=== PATIENT | male | born 1990 | race Caucasian/White ===

== ENCOUNTER 2016-10-12 23:05 | Emergency (ER) | payer OTHER ==
[2016-10-12 23:16] VITALS: BP 127/68; PULSE 90; RESP 18; TEMP 97
[2016-10-12] MEDS ORDERED: PROPARACAINE 0.5% OPHTH DROPS 15 ML BTL LEFT EYE STA (23:21)
--- NOTE | 2016-10-12 23:25 | ED ---
Allergic Reaction HPI - General Chief complaint: Allergic Reaction Stated complaint: allergic reaction Time Seen by Provider: 10/12/16 23:20 Source: patient, family, RN/MD, EMS, RN notes reviewed Mode of arrival: ambulatory Limitations: no limitations - History of Present Illness Initial Comments: This is a 26-year-old male who presents emergency department stating that he was hiking through some words in tall grass when he felt like he got something in his left eye. He states he has a burning and stinging sensation to the eye. He states he has some redness and irritation around the eye. He denies any problems with visual acuity. Patient does have a little rash on his right forearm. Patient took Benadryl prior to arrival. Patient denies any shortness breath or chest pain. No problems with airway. No throat problems. No problems with the right eye. No ear problems. No difficulty swallowing. Tetanus status is up-to-date. Patient denies any chest pain or abdominal pain. No nausea or vomiting. MD Complaint: allergic reaction - Related Data Home Medications Medication Instructions Recorded Confirmed No Known Home Medications [No 10/12/16 10/12/16 Known Home Medications] Allergies Allergy/AdvReac Type Severity Reaction Status Date / Time Penicillins Allergy Rash/Hives Verified 10/12/16 23:31 Review of Systems ROS Statement: Those systems with pertinent positive or pertinent negative responses have been documented in the HPI. ROS Other: All systems not noted in ROS Statement are negative. Past Medical History Past Medical History: No Reported History History of Any Multi-Drug Resistant Organisms: None Reported Past Surgical History: Hernia Repair Additional Past Surgical History / Comment(s): fistula removed Past Psychological History: No Psychological Hx Reported Smoking Status: Current every day smoker Past Alcohol Use History: Occasional Past Drug Use History: None Reported General Exam - General Exam Comments Initial Comments: Well-developed, well-nourished 26-year-old male in minimal distress Limitations: no limitations General appearance: alert, in no apparent distress Head exam: Present: atraumatic, normocephalic, normal inspection Eye exam: Present: PERRL, EOMI, conjunctival injection (Patient has mild conjunctival injection involving the left eye. There is no evidence of foreign body. No evidence of chemosis), other (Minimal redness and irritation to the skin of the upper and lower eyelid. No lesions or vesicles). Absent: normal appearance, scleral icterus, periorbital swelling Pupils: Present: other (Slit-lamp examination reveals no evidence of corneal abrasion. No evidence of infection. Lid was everted. No evidence of foreign body. No hypopyon or hyphema. No dye uptake. Proparacaine was used to numb the eye prior to slit lamp examination) ENT exam: Present: normal exam, mucous membranes moist Neck exam: Present: normal inspection. Absent: tenderness, meningismus, lymphadenopathy Respiratory exam: Present: normal lung sounds bilaterally. Absent: respiratory distress, wheezes, rales, rhonchi, stridor Cardiovascular Exam: Present: regular rate, normal rhythm, normal heart sounds. Absent: systolic murmur, diastolic murmur, rubs, gallop, clicks GI/Abdominal exam: Present: soft, normal bowel sounds. Absent: distended, tenderness, guarding, rebound, rigid Extremities exam: Present: normal inspection, full ROM, normal capillary refill. Absent: tenderness, pedal edema, joint swelling, calf tenderness Back exam: Present: normal inspection Neurological exam: Present: alert, oriented X3, CN II-XII intact Psychiatric exam: Present: normal affect, normal mood Skin exam: Present: warm, dry, intact, normal color, rash (Patient has a mild eruption on the right arm consistent with contact dermatitis. This is relegated to the forearm. There is no evidence of secondary infection.) Course Vital Signs 10/12/16 23:09 Temperature 97 F L Pulse Rate 90 Respiratory 18 Rate Blood Pressure 127/68 O2 Sat by Pulse 96 Oximetry Procedures - Procedures Initial comment: Proparacaine, one drop to left eye, slit-lamp examination, eye irrigation with 500 mL of normal saline. Patient tolerated well Medical Decision Making - Medical Decision Making Patient appears have mild irritation --likely from contact with plant matter as he does have evidence of contact dermatitis which is mild on the right forearm and a little bit of redness to the left eye. There is no evidence of foreign body. No diminished visual acuity. Patient will be sent home with antihistamines and told to use artificial tears. Return parameters discussed Disposition Clinical Impression: Conjunctivitis, allergic, Contact dermatitis due to plant Disposition: HOME SELF-CARE Condition: Good Instructions: Conjunctivitis (ED), Contact Dermatitis (ED) Additional Instructions: Use artificial tears every hour as needed for eye irritation. Continue over-the -counter Benadryl 25 mg every 6 hours for itching. Apply topical hydrocortisone to the rash on the right forearm.Return to the ER at once if the symptoms worsen or problems or difficulties arise. Referrals: Joseph Bourgeois MD [Primary Care Provider] - 1-2 days Time of Disposition: 23:41
== END 2016-10-13 00:39 | disposition home or self-care (01) ==
LOC: EC 23:05
DX: H10.12 Acute atopic conjunctivitis, left eye (principal); L23.7 Allergic contact dermatitis due to plants, except food; F17.200 Nicotine dependence, unspecified, uncomplicated; Z88.0 Allergy status to penicillin
CPT/HCPCS: 99283

== ENCOUNTER 2020-10-03 17:58 | Emergency (ER) | payer BC, OTHER ==
[2020-10-03 18:19] VITALS: BP 133/82; PULSE 65; RESP 18; TEMP 98.1
[2020-10-03] MEDS ORDERED: DIPH,PERTUS(ACELL)TETVAC-LF 0.5 ML VIAL IM ONE (19:51)
--- NOTE | 2020-10-03 20:28 | ED ---
Wound/Laceration HPI - General Chief Complaint: Wound/Laceration Stated Complaint: Head Injury Time Seen by Provider: 10/03/20 19:43 Source: patient Mode of arrival: ambulatory Limitations: no limitations - History of Present Illness Initial Comments: Patient is a 30-year-old male presenting to the emergency department with a laceration to his scalp. 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 This happened about 2 hours prior to arrival. He did not lose consciousness, he does have a very small headache where his laceration is. Bleeding is controlled with a bandage. He is unsure of his tetanus vaccine. He denies any dizziness, no lightheadedness, no nausea or vomiting. He denies any changes in his vision. He states his headache is a 2/10. He did not take any medication yet. He has no further complaints at this time. - Related Data Home Medications Medication Instructions Recorded Confirmed No Known Home Medications 10/12/16 10/12/16 Allergies Allergy/AdvReac Type Severity Reaction Status Date / Time Penicillins Allergy Rash/Hives Verified 10/12/16 23:31 Review of Systems ROS Statement: Those systems with pertinent positive or pertinent negative responses have been documented in the HPI. ROS Other: All systems not noted in ROS Statement are negative. Past Medical History Past Medical History: No Reported History History of Any Multi-Drug Resistant Organisms: None Reported Past Surgical History: Hernia Repair, Tonsillectomy Additional Past Surgical History / Comment(s): fistula removed Past Psychological History: No Psychological Hx Reported Smoking Status: Former smoker Past Alcohol Use History: Occasional Past Drug Use History: None Reported General Exam - General Exam Comments Initial Comments: GENERAL: Patient is well-developed and well-nourished. Patient is nontoxic and in no acute distress. HEAD: Atraumatic, normocephalic. Patient has small hematoma to the top of his scalp where her laceration is. No active bleeding. Very minimal pain surrounding the area. No signs of basal skull fracture. EYES: Pupils equal round and reactive to light, extraocular movements intact, sclera anicteric, conjunctiva are normal. Eyelids were unremarkable. ENT: TMs normal, nares patent, oropharynx clear without exudates. Moist mucous membranes. NECK: Normal range of motion, supple without lymphadenopathy or JVD. No midline tend erness. LUNGS: Unlabored respirations. Breath sounds clear to auscultation bilaterally and equal. No wheezes rales or rhonchi. HEART: Regular rate and rhythm without murmurs, rubs or gallops. ABDOMEN: Soft, nontender, normoactive bowel sounds. No guarding, no rebound. No masses appreciated. : Deferred MUSCULOSKELETAL: Normal extremities with adequate strength and normal range of motion, no pitting or edema. No clubbing or cyanosis. NEUROLOGICAL: Patient is alert and oriented x 3. Motor and sensory are also intact. Cranial nerves II through XII grossly intact. Symmetrical smile. Normal speech, normal gait. PSYCH: Normal mood, normal affect. SKIN: Warm, Dry, normal turgor, no rashes. Patient has a 3 cm laceration to the top of his scalp, there is a small hematoma underneath as well. No active bleeding. Limitations: no limitations Course Vital Signs 10/03/20 18:13 Temperature 98.1 F Pulse Rate 65 Respiratory 18 Rate Blood Pressure 133/82 O2 Sat by Pulse 98 Oximetry Procedures - Laceration Laceration #1 Consent Obtained: verbal consent Indication: laceration Site: scalp Size (cm): 3 Description: linear Depth: simple, single layer Patient Tolerated Procedure: well Additional Comments: 6 sofia were used to close patient's 3 cm wound. He tolerated procedure well. Medical Decision Making - Medical Decision Making Patient is a 30-year-old male here with a 3 cm laceration to the top of the scalp after a post-jewel hole cornerer fell back on the top of his head. No loss of consciousness, no other abnormal exam findings, no acute neuro deficits. His pain is minimal. This happened about 2 hours prior to arrival. Patient's wound was cleaned, closed with 6 sofia. He tolerated procedure well. We did update his tetanus vaccine today. We discussed wound care, sofia need to be removed in 7-10 days. He is stable for discharge and he is in agreement with this plan of care. Case discussed with Dr. Lipscomb. Disposition Clinical Impression: Laceration of scalp, Scalp hematoma Disposition: HOME SELF-CARE Condition: Stable Instructions (If sedation given, give patient instructions): Staple Care (ED) Additional Instructions: Please return to the Emergency Department if symptoms worsen or any other concerns. Keep area clean and dry. May take showers as normal. Pat area dry, careful not to snag the sofia. May take Tylenol or Motrin for any discomfort. [place] need to removed in 7-10 days. Is patient prescribed a controlled substance at d/c from ED?: No Referrals: Art Damico DO [Primary Care Provider] - 1-2 days Time of Disposition: 20:27
== END 2020-10-03 20:44 | disposition home or self-care (01) ==
LOC: EC 17:58
DX: S01.01XA Laceration without foreign body of scalp, initial encounter (principal); Z87.891 Personal history of nicotine dependence; Z88.0 Allergy status to penicillin; W20.8XXA Other cause of strike by thrown, projected or falling object, initial encounter
CPT/HCPCS: 12002; 90471; 90715; 99282

== ENCOUNTER 2023-01-01 06:54 | Day surgery (SDC) | payer OTHER ==
[2022-12-31 12:06] VITALS: BMI 21.5
[2023-01-01] MEDS ORDERED: LIDOCAINE 1% (10MG/ML) FOR IV START INTRADERMA PRN (07:11)
[2023-01-01] MEDS ORDERED: ONDANSETRON 4 MG/2 ML VIAL IVP PRN (07:11)
[2023-01-01] MEDS: LACTATED RINGERS 1,000 ML IV SCH ×2 (07:21→07:40)
[2023-01-01 07:38] VITALS: RESP 16; TEMP 97.1
[2023-01-01] MEDS ORDERED: PROPOFOL 10 MG/ML 20 ML VIAL IV ONE (07:42)
[2023-01-01] MEDS ORDERED: LIDOCAINE 2% INJ 20 MG/ML (2 ML VIAL) ONE (07:42)
--- NOTE | 2023-01-01 08:16 | P.PCN ---
Date of Procedure: 01/01/23 Procedure(s) Performed: Brief history: Patient is a pleasant 32-year-old white male scheduled for an elective upper endoscopy as well as colonoscopy as a part of evaluation of iron deficiency anemia and chronic diarrhea. Last hemoglobin was 11 g/dL and this and iron indices consistent with iron deficiency anemia. His been having 2 small lumens anywhere between 3-4 days for the last 10 years duration. Denies any rectal bleeding. Procedure performed: Esophagogastroduodenoscopy with biopsy Colonoscopy with biopsy Preoperative diagnosis: Iron deficiency anemia and chronic diarrhea of 10 years duration Anesthesia: MAC Procedure: After informed consent was obtained from the patient was brought into the endoscopy unit and IV sedation was administered by anesthesia under continuous monitoring. Initially upper endoscopy was done. The Olympus GF 160 video endoscope was inserted inserted into the mouth and esophagus intubated without any difficulty and was gradually advanced into the stomach and duodenum and carefully examined. The bulb and second part of the duodenum appeared normal. Biopsies were done from the duodenum to rule out celiac disease. The scope was then withdrawn into the stomach adequately insufflated with air and upon careful examination the antrum had mild gastritis and biopsies were done from this area. Mucosa of the body, cardia and fundus appeared normal. The scope was then withdrawn into the esophagus. The GE junction was located at 40 cm to the incisors. It appeared regular with no erythema erosions or ulcerations. Rest of the esophagus appeared normal. Patient tolerated the procedure well. At this time the patient continued to remain sedation. Initial digital rectal examination was normal. Olympus CF 160 video colonoscope was then inserted into the rectum and gradually advanced to the cecum without any difficulty. Careful examination was performed as the scope was gradually being withdrawn. The prep was excellent. The ileocecal valve was extremely deformed with multiple small polyps noted. The bulb was also significant a narrowed with multiple ulcerations and biopsies were done from this area. They've a cluster of pseudopolyps noted on the ileocecal valve. I was not able to advance the scope into the terminal ileum because of significant narrowing noted in this area. Mucosa of the cecum, ascending colon, transverse colon, descending colon, sigmoid colon and rectum appeared normal. Biopsies were done from ascending and descending colon to rule out metastatic/collagenous colitis. Retroflexion was performed in the rectum and no lesions were noted. Patient tolerated the procedure well. Impression: 1. Upper endoscopy revealed mild antral gastritis but no evidence of esophagitis or peptic ulcer disease 2. Colonoscopy revealed deformed ileocecal valve with significant narrowing and ulcerations as well as multiple pseudopolyps status post multiple biopsies and endoscopic features suspicious for Crohn's ileitis.. Recommendations: Findings of this examination were discussed with the patient as well as his family. He was advised to follow up in office in one to 2 weeks to discuss the biopsy results.
[2023-01-01 08:47] VITALS: BP 103/56; PULSE 63
== END 2023-01-01 09:24 | disposition home or self-care (01) ==
LOC: ORWHC2ENDO 06:54
PROVIDERS: ATTEND Internal Medicine Gastroenterology
DX: K29.50 Unspecified chronic gastritis without bleeding (principal); K63.3 Ulcer of intestine; K52.9 Noninfective gastroenteritis and colitis, unspecified; D50.9 Iron deficiency anemia, unspecified; K21.9 Gastro-esophageal reflux disease without esophagitis; F17.210 Nicotine dependence, cigarettes, uncomplicated; Z88.0 Allergy status to penicillin; Z90.89 Acquired absence of other organs; Z98.890 Other specified postprocedural states; Z79.899 Other long term (current) drug therapy
CPT/HCPCS: 88305; 45380; 43239; J2704; J2001

== ENCOUNTER → 2023-02-15 | Day surgery (SDC) | payer OTHER ==
[~2023-02-15] MED LIST: GLUCAGON 1 MG/ML VIAL IM STA
[2023-02-15 08:59] VITALS: BP 128/56; PULSE 79; RESP 18; TEMP 97.6
--- NOTE | 2023-02-16 13:30 | MR ---
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 Crohn's disease. TECHNIQUE: Standard multiplanar, multisequence imaging of the abdomen is performed without and with I V contrast, patient is injected with 1200 mL intravenous Gadavist gadolinium contrast. Oral Volumen a nd Water was given as per enterography protocol. FINDINGS: LOWER CHEST: No significant findings. ABDOMEN Bowel: Terminal small bowel thickening near the ileocecal junction measuring up to 10 mm in thickness measuring approximately 9.1 cm in length. There is small bowel feces within the terminal ileum exten ding proximally. Additional skip lesion is felt also be present layering in the pelvis. No definitive evidence of fistulous tract formation. There is moderate amount of stool within the rectum. Peritoneum: No evidence of pneumoperitoneum, free fluid, or adenopathy. Liver: Left hepatic lobe 16 mm arterial phase hyperenhancing lesion which progressively fills in on d elayed imaging./Filling hemangioma in the right hepatic lobe series 1301 image 76. Gallbladder and Bile ducts: Unremarkable. Pancreas: Unremarkable. Spleen: Unremarkable. Adrenal glands: Unremarkable. Kidneys: Unremarkable. Bladder: Unremarkable. Reproductive: Unremarkable. Lymph Nodes: Vasculature: Unremarkable. No aortic aneurysm. Musculoskeletal: The osseous structures appear intact. Abdominal wall: Unremarkable. IMPRESSION: 1. Active Crohn's disease involving the terminal ileum with bowel wall thickening and small bowel fe terrance suggesting some degree of fecal stasis/obstruction. A skip lesion is felt to be present in the pe lvis. No evidence for abscess or fistula on this exam. 2. Left hepatic lobe probable hepatic hemangioma.
== END ==
LOC: RADMRIMAIN 07:53
PROVIDERS: ATTEND Internal Medicine Gastroenterology
DX: K50.00 Crohn's disease of small intestine without complications (principal)
CPT/HCPCS: 96372; 72197; 74183; J1610; A9585

== ENCOUNTER → 2023-06-28 | Outpatient (CLI) | payer OTHER ==
--- NOTE | 2023-06-28 21:53 | MR ---
MRI brain without contrast. HISTORY: Headache and dizziness for 3 weeks. COMPARISON: None. Without contrast. FINDINGS: There is a fairly well-circumscribed 4.8 x 4.3 cm mass within the posterior fossa which appears be ce ntered in the fourth ventricle. It is heterogeneous in signal intensity and contains small areas of c alcification or remote hemorrhage. It is highly suspicious for a primary malignant tumor such as a me dulloblastoma, ependymoma or hemangioblastoma with other etiologies not excluded.. The mass causes pr ojection of the cerebellar tonsils below the level of this foramen magnum approximately 8 mm. The lateral and third ventricles are not dilated. There is no shift of midline structures. Based on diffusion weighted imaging there is no acute ischemic event.. IMPRESSION: Large posterior fossa mass as described above highly suspicious for primary malignant tumor. MRI with contrast would be useful for further characterization.
== END | disposition home or self-care (01) ==
LOC: RADMRIMAIN 21:15
PROVIDERS: ATTEND Family Medicine
DX: R51.9 Headache, unspecified (principal); H53.9 Unspecified visual disturbance; R53.83 Other fatigue; G93.9 Disorder of brain, unspecified
CPT/HCPCS: 70551

== ENCOUNTER 2023-07-11 18:07 | Emergency (ER) | payer OTHER ==
[2023-07-11 18:38] VITALS: BP 116/78; PULSE 75; RESP 20
--- NOTE | 2023-07-11 19:16 | ED ---
General Adult HPI - General Chief complaint: Extremity Injury, Upper Stated complaint: L Hand Pain Time Seen by Provider: 07/11/23 18:31 Source: patient, RN notes reviewed Mode of arrival: ambulatory Limitations: no limitations - History of Present Illness Initial comments: 32-year-old male presents to the emergency department for left hand pain. Marco keller states that he got frustrated earlier today and punched the steel wall. He states that since then he has had pain in his medial hand going to the fourth and fifth digits. He states that he is unable to move his fourth and fifth digits due to the pain. He denies numbness, tingling. - Related Data Home Medications Medication Instructions Recorded Confirmed Ferrous Sulfate [Feosol] 325 mg PO DAILY 12/31/22 02/15/23 Budesonide [Entocort EC] 3 mg PO TID 02/15/23 02/15/23 Previous Rx's Medication Instructions Recorded HYDROcodone/APAP 5-325MG [[place] 5] 1 each PO Q6HR PRN #12 tab 07/11/23 Allergies Allergy/AdvReac Type Severity Reaction Status Date / Time Penicillins Allergy Rash/Hives Verified 07/11/23 18:30 Review of Systems ROS Statement: Those systems with pertinent positive or pertinent negative responses have been documented in the HPI. ROS Other: All systems not noted in ROS Statement are negative. Past Medical History Past Medical History: GERD/Reflux Additional Past Medical History / Comment(s): ANEMIA, Brain tumor History of Any Multi-Drug Resistant Organisms: None Reported Past Surgical History: Hernia Repair, Tonsillectomy Additional Past Surgical History / Comment(s): fistula repair Past Anesthesia/Blood Transfusion Reactions: No Reported Reaction Past Psychological History: No Psychological Hx Reported Smoking Status: Vaper Past Alcohol Use History: Occasional Past Drug Use History: Marijuana General Exam Limitations: no limitations General appearance: alert, in no apparent distress Head exam: Present: atraumatic, normocephalic, normal inspection Eye exam: Present: normal appearance, PERRL, EOMI. Absent: scleral icterus, conjunctival injection, periorbital swelling ENT exam: Present: normal exam, mucous membranes moist Respiratory exam: Present: normal lung sounds bilaterally. Absent: respiratory distress, wheezes, rales, rhonchi, stridor Cardiovascular Exam: Present: regular rate, normal rhythm, normal heart sounds. Absent: systolic murmur, diastolic murmur, rubs, gallop, clicks Extremities exam: Present: tenderness, normal capillary refill, other (Swelling to the medial aspect of the hand with ecchymosis, no overlying lacerations or abrasions). Absent: full ROM Back exam: Present: normal inspection Neurological exam: Present: alert, oriented X3 Psychiatric exam: Present: normal affect, normal mood Skin exam: Present: warm, dry, intact, other (Ecchymosis to the left hand with swelling to the medial dorsal hand). Absent: rash Course Vital Signs 07/11/23 07/11/23 18:27 21:05 Temperature 97.9 F 98.7 F Pulse Rate 75 Respiratory 20 Rate Blood Pressure 116/78 O2 Sat by Pulse 97 Oximetry Procedures - Orthopedic Splinting/Casting Injury #1 Side: left Upper Extremity Immobilizer: ulnar gutter Medical Decision Making - Medical Decision Making Was pt. sent in by a medical professional or institution (, PA, PERSONAL DEVELOPMENT COACH, urgent care, hospital, or custodial...) When possible be specific @ -No Did you speak to anyone other than the patient for history (EMS, parent, family, police, friend...)? What history was obtained from this source @ -No Did you review nursing and triage notes (agree or disagree)? Why? @ -I reviewed and agree with nursing and triage notes Were old charts reviewed (outside hosp., previous admission, EMS record, old EKG, old radiological studies, urgent care reports/EKG's, custodial records)? Report findings @ -No old charts were reviewed Differential Diagnosis (chest pain, altered mental status, abdominal pain women, abdominal pain men, vaginal bleeding, weakness, fever, dyspnea, syncope, headache, dizziness, GI bleed, back pain, seizure, CVA, palpatations, mental health, musculoskeletal)? @ -Differential Musculoskeletal Muscular strain, contusion, ligament sprain, fracture, arthritis, septic arthritis, bursitis, cellulitis, muscle spasm, nerve compression, DVT, arterial occlusion, herpes zoster, electrolyte abnormality, tumor.... This is not meant to be in all inclusive list EKG interpreted by me (3pts min.). @ -None X-rays interpreted by me (1pt min.). @ -X-ray of the left hand shows Intra-articular fracture at the base of the fifth metacarpal with lateral displacement of the lateral fracture fragment and mild apex posterior angulation at the fracture site CT interpreted by me (1pt min.). @ -None done U/S interpreted by me (1pt. min.). @ -None done What testing was considered but not performed or refused? (CT, X-rays, U/S, labs)? Why? @ -None What meds were considered but not given or refused? Why? @ -None Did you discuss the management of the patient with other professionals (prof fried i.e. , PA, PERSONAL DEVELOPMENT COACH, lab, RT, psych nurse, criminal justice social worker, hammer driver, teacher, chief fundraising officer, case reviewer)? Give summary @ -No Was smoking cessation discussed for >3mins.? @ -No Was critical care preformed (if so, how long)? @ -No Were there social determinants of health that impacted care today? How? (Homelessness, low income, unemployed, alcoholism, drug addiction, transportation, low edu. Level, literacy, decrease access to med. care, [facility], rehab)? @ -No Was there de-escalation of care discussed even if they declined (Discuss DNR or withdrawal of care, Hospice)? DNR status @ -No What co-morbidities impacted this encounter? (DM, HTN, Smoking, COPD, CAD, Cancer, CVA, ARF, Chemo, Hep., AIDS, mental health diagnosis, sleep apnea, morbid obesity)? @ -None Was patient admitted / discharged? Hospital course, mention meds given and route, prescriptions, significant lab abnormalities, going to OR and other pertinent info. @ -Discharge. Patient presented to the emergency department for evaluation of left hand injury. Neurovascularly intact. There is swelling to the medial aspect of the left hand. X-rays obtained which show an intra-articular fracture at the base of the fifth metacarpal with lateral displacement of the lateral fracture fragment and mild apex posterior angulation at the fracture site. Patient placed in an ulnar gutter splint and given follow-up for orthopedics. Patient provided 3 days worth of medication for pain management. Patient understanding agreeable with plan. Patient stable at time of discharge. Case discussed with Dr. Perez Undiagnosed new problem with uncertain prognosis? @ -No Drug Therapy requiring intensive monitoring for toxicity (Heparin, Nitro, Insulin, Cardizem)? @ -No Were any procedures done? @ -Splinting Diagnosis/symptom? @ -Fifth metacarpal fracture Acute, or Chronic, or Acute on Chronic? @ -Acute Uncomplicated (without systemic symptoms) or Complicated (systemic symptoms)? @ -Uncomplicated Side effects of treatment? @ -No Exacerbation, Progression, or Severe Exacerbation? @ -No Poses a threat to life or bodily function? How? (Chest pain, [place], [place], pneumonia, PE, COPD, DKA, ARF, appy, cholecystitis, CVA, Diverticulitis, Homicidal, Suicidal, threat to staff... and all critical care pts) @ -No Disposition Clinical Impression: Fracture of base of fifth metacarpal bone of left hand Disposition: HOME SELF-CARE Condition: Stable Instructions (If sedation given, give patient instructions): Hand Fracture (ED) Additional Instructions: Please follow up with orthopedics. Return to the emergency department for new or worsening symptoms. Prescriptions: HYDROcodone/APAP 5-325MG [[place] 5] 1 each PO Q6HR PRN #12 tab PRN Reason: Pain Is patient prescribed a controlled substance at d/c from ED?: No Referrals: Art Damico DO [Primary Care Provider] - 1-2 days Ivy Gutiérrez DO [Doctor of Osteopathic Medicine] - 1-2 days
--- NOTE | 2023-07-11 20:10 | XR ---
EXAMINATION TYPE: XR hand complete LT DATE OF EXAM: 07/11/2023 7:17 PM CLINICAL INDICATION:Male, 32 years old with history of medial hand pain, punched wall; [facility] COMPARISON: None TECHNIQUE: 3 views FINDINGS: Osseous mineralization appears appropriate. Acute intraarticular fracture at the base of the fifth me tacarpal with lateral displacement of a lateral fracture fragment and mild apex posterior angulation at the fracture site. No dislocation seen. No additional fractures or dislocations throughout the correa d. Joint spaces appear maintained. Mild soft tissue swelling in the region of the fracture, otherwise unremarkable without radiopaque foreign body seen. IMPRESSION: Acute intraarticular fracture at the base of the fifth metacarpal with lateral displacement of a late ral fracture fragment and mild apex posterior angulation at the fracture site.
[2023-07-11] MEDS: ACET/COD 300 MG/30 MG STARTER PACK 6 TAB BTL PO STA (21:11)
[2023-07-11 21:14] VITALS: TEMP 98.7
== END 2023-07-11 21:21 | disposition home or self-care (01) ==
LOC: EC 18:07
DX: S62.317A Displaced fracture of base of fifth metacarpal bone, left hand, initial encounter for closed fracture (principal); F17.290 Nicotine dependence, other tobacco product, uncomplicated; F12.90 Cannabis use, unspecified, uncomplicated; Z88.0 Allergy status to penicillin; W22.8XXA Striking against or struck by other objects, initial encounter
CPT/HCPCS: 29125; 99283

== ENCOUNTER → 2023-07-13 | Outpatient (CLI) | payer OTHER ==
--- NOTE | 2023-07-13 23:01 | MR ---
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 IV Contrast: 8 cc Gadavist FINDINGS: Prior unenhanced MRI is reviewed and correlated with the current exam. In the posterior fossa, there is a large heterogeneous signal mass with cystic spaces and solid enhan cing components, both along the periphery and internal enhancing components. There is evidence of mul tiple areas of hemorrhagic products on susceptibility sequence, both within and along the periphery o f the mass. The mass measures up to 5.1 x 4.1 cm axially and extends up to 5.2 cm craniocaudally. Thi s appears to be intra-axial, centered in the right superior medial aspect of the cerebellum, and cran ially involves the vermis and reaches as high as the incisura. Mass extends across the midline slight ly to the left. The mass however does appear fairly circumscribed and not eliciting tremendous edema in the adjacent brain. It appears the fourth ventricle is displaced inferiorly and almost entirely effaced. There is also ma ss effect on the surrounding cerebellar parenchyma, as well as significant mass effect on the right p osterior aspect of the lower midbrain, dawood, and upper medulla, with complete effacement of the cereb ral aqueduct. Ventricular size appears stable compared to the prior examination, borderline mildly prominent withou t evidence of transependymal shift of fluid at this time. 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 No additional enhancing brain lesions are seen. No abnormal leptomeningeal enhancement. Grossly prese rved enhancement of the intracranial vasculature. Left vertebral artery is dominant. No enhancing calvarial lesions are suggested. Orbits demonstrate no abnormal enhancement. IMPRESSION: 1. Large, heterogeneously enhancing, fairly circumscribed mass in the posterior fossa. This appears m ost likely intra-axial, centered in the right superomedial cerebellum and involves the vermis. In an adult, cerebellar metastasis is statistically most common, however primary brain tumors including hem angioblastoma, astrocytoma, medulloblastoma, ependymoma are additional considerations, along with jarret ious more rare entities. 2. This causes significant mass effect on the surrounding cerebellar parenchyma, displacing the fourt h ventricle inferiorly and almost entirely effaces it. Mass effect on the right posterior aspect of t he lower midbrain, dawood, and upper medulla, associated with complete effacement of the cerebral aqued uct. There is up to 1 cm cerebellar tonsillar ectopia, likely acquired secondary to the mass. Given t his constellation of findings, the patient should be evaluated and closely monitored for development of hydrocephalus and/or progressive cerebellar tonsillar herniation. 3. Neurosurgical consult strongly advised, if not already done.
== END | disposition home or self-care (01) ==
LOC: RADMRIMAIN 21:30
PROVIDERS: ATTEND Family Medicine
DX: D43.2 Neoplasm of uncertain behavior of brain, unspecified (principal); C71.6 Malignant neoplasm of cerebellum; C79.31 Secondary malignant neoplasm of brain
CPT/HCPCS: 70552; A9585

== ENCOUNTER → 2023-07-26 | Outpatient (CLI) | payer OTHER ==
--- NOTE | 2023-07-26 13:01 | CT ---
EXAMINATION TYPE: CT hand LT wo con DATE OF EXAM: 07/26/2023 COMPARISON: None HISTORY: 5th metac[address] fx CT DLP: 258.2 mGycm Automated exposure control for dose reduction was used. FINDINGS: There is a markedly comminuted mildly displaced intra-articular fracture involving the base of the fi fth metacarpal. Remaining osseous structures are intact. The soft tissues are unremarkable IMPRESSION: FRACTURE OF THE FIFTH METACARPAL IS DESCRIBED ABOVE
== END | disposition home or self-care (01) ==
LOC: RADCTMAIN 12:18
PROVIDERS: ATTEND Orthopaedic Surgery Hand Surgery
DX: S62.317D Displaced fracture of base of fifth metacarpal bone, left hand, subsequent encounter for fracture with routine healing (principal); X58.XXXD Exposure to other specified factors, subsequent encounter